=== PATIENT | female | born 1995 | race Caucasian/White ===

== ENCOUNTER → 2023-06-05 10:08 | Outpatient (REF) | payer OTHER, SELFPAY | LOC: PNTC 10:08 | PROVIDERS: ATTENDING PHYSICIAN Obstetrics & Gynecology | DX: Z36.0 Encounter for antenatal screening for chromosomal anomalies (principal); Z36.82 Encounter for antenatal screening for nuchal translucency | CPT/HCPCS: 76801; 76802; 76813; 76814 ==

== ENCOUNTER → 2023-07-05 14:48 | Outpatient (REF) | payer OTHER, SELFPAY | LOC: PNTC 14:48 | PROVIDERS: ATTENDING PHYSICIAN Obstetrics & Gynecology | DX: O30.042 Twin pregnancy, dichorionic/diamniotic, second trimester (principal); E83.119 Hemochromatosis, unspecified | CPT/HCPCS: 76805; 76810 ==

== ENCOUNTER → 2023-08-07 09:38 | Outpatient (REF) | payer OTHER, SELFPAY | LOC: PNTC 09:38 | PROVIDERS: ATTENDING PHYSICIAN Obstetrics & Gynecology | DX: O30.042 Twin pregnancy, dichorionic/diamniotic, second trimester (principal); E83.119 Hemochromatosis, unspecified | CPT/HCPCS: 76811; 76812 ==

== ENCOUNTER → 2023-08-27 07:05 | Outpatient (REF) | payer OTHER, SELFPAY | LOC: PNTC 07:05 | PROVIDERS: ATTENDING PHYSICIAN Obstetrics & Gynecology | DX: O30.049 Twin pregnancy, dichorionic/diamniotic, unspecified trimester (principal); E83.119 Hemochromatosis, unspecified | CPT/HCPCS: 76816 ==

== ENCOUNTER → 2023-09-24 16:26 | Outpatient (REF) | payer OTHER, SELFPAY | LOC: PNTC 16:26 | PROVIDERS: ATTENDING PHYSICIAN Obstetrics & Gynecology | DX: O30.049 Twin pregnancy, dichorionic/diamniotic, unspecified trimester (principal) | CPT/HCPCS: 76816 ==

== ENCOUNTER → 2023-10-25 15:31 | Outpatient (REF) | payer OTHER, SELFPAY | LOC: PNTC 15:31 | PROVIDERS: ATTENDING PHYSICIAN Obstetrics & Gynecology | DX: O30.049 Twin pregnancy, dichorionic/diamniotic, unspecified trimester (principal) | CPT/HCPCS: 59025 ==

== ENCOUNTER → 2023-11-01 15:53 | Outpatient (REF) | payer OTHER, SELFPAY | LOC: PNTC 15:53 | PROVIDERS: ATTENDING PHYSICIAN Obstetrics & Gynecology | DX: O30.049 Twin pregnancy, dichorionic/diamniotic, unspecified trimester (principal); O35.2XX0 Maternal care for (suspected) hereditary disease in fetus, not applicable or unspecified | CPT/HCPCS: 59025 ==

== ENCOUNTER → 2023-11-08 16:06 | Outpatient (REF) | payer OTHER, SELFPAY | LOC: PNTC 16:06 | PROVIDERS: ATTENDING PHYSICIAN Obstetrics & Gynecology | DX: O30.049 Twin pregnancy, dichorionic/diamniotic, unspecified trimester (principal); E83.110 Hereditary hemochromatosis | CPT/HCPCS: 59025 ==

== ENCOUNTER → 2023-11-15 15:26 | Outpatient (REF) | payer OTHER, SELFPAY | LOC: PNTC 15:26 | PROVIDERS: ATTENDING PHYSICIAN Obstetrics & Gynecology | DX: O30.049 Twin pregnancy, dichorionic/diamniotic, unspecified trimester (principal); E83.119 Hemochromatosis, unspecified | CPT/HCPCS: 36415; 59025 ==

== ENCOUNTER 2023-11-18 06:01 | Inpatient (IN) | payer OTHER, SELFPAY ==
[2023-11-18 06:20] VITALS: BP 138/85; BMI 27.0
== END 2023-11-18 07:27 | disposition home or self-care (01) | DRG 833 ==
LOC: LDRP 06:01
PROVIDERS: ADMITTING PHYSICIAN Obstetrics & Gynecology; FAMILY PHYSICIAN Family Medicine
DX: O47.03 False labor before 37 completed weeks of gestation, third trimester (principal); O30.043 Twin pregnancy, dichorionic/diamniotic, third trimester; Z3A.36 36 weeks gestation of pregnancy
CPT/HCPCS: 86850; 86900; 86901; G0378

== ENCOUNTER → 2023-11-22 15:26 | Outpatient (REF) | payer OTHER, SELFPAY | LOC: PNTC 15:26 | PROVIDERS: ATTENDING PHYSICIAN Obstetrics & Gynecology | DX: O30.049 Twin pregnancy, dichorionic/diamniotic, unspecified trimester (principal); E83.119 Hemochromatosis, unspecified | CPT/HCPCS: 59025 ==

== ENCOUNTER → 2023-11-27 14:57 | Outpatient (REF) | payer OTHER, SELFPAY | LOC: PNTC 14:57 | PROVIDERS: ATTENDING PHYSICIAN Obstetrics & Gynecology | DX: O30.049 Twin pregnancy, dichorionic/diamniotic, unspecified trimester (principal); E83.110 Hereditary hemochromatosis | CPT/HCPCS: 59025; 76815 ==

== ENCOUNTER 2023-12-03 05:52 | Inpatient (IN) | payer OTHER, SELFPAY ==
[2023-12-03 06:25] VITALS: BP 122/77; BMI 27.3
[2023-12-03 06:30] LABS: Hematocrit 32.9 % (37.0-47.0); Hemoglobin 11.5 g/dL (12.0-16.0); Mean Corpuscular Hgb 29.6 pg (27.0-31.0); Mean Corpuscular Volume 84.6 fL (81.0-99.0); Mean Platelet Volume 12.3 fL (7.4-10.4); Platelet Count 182 10^3/uL (130-400); Red Blood Cell Count 3.89 10^6/uL (4.20-5.40); Red Cell Dist. Width 13.7 % (11.5-14.5); White Blood Cell Count 11.7 10^3/uL (4.8-10.8)
[2023-12-03] MEDS: BICITRA 30 ML PO (07:39)
[2023-12-03] MEDS: TYLENOL 1000 MG PO (07:39)
[2023-12-03] MEDS: GENTAMICIN 60 MG IV (07:40)
[2023-12-03] MEDS: CLEOCIN 50 IV (09:52)
[2023-12-03] MEDS: REGLAN 10 MG IV (11:49)
[2023-12-03] MEDS: TORADOL 15 MG IV ×2 (15:24→20:54)
[2023-12-04] MEDS: TORADOL 15 MG IV ×2 (03:00→08:55)
[2023-12-04 04:54] LABS: Hematocrit 29.6 % (37.0-47.0); Hemoglobin 10.2 g/dL (12.0-16.0); Mean Corp Hgb Conc. 34.5 g/dL (33.0-37.0); Mean Corpuscular Hgb 29.4 pg (27.0-31.0); Mean Corpuscular Volume 85.3 fL (81.0-99.0); Mean Platelet Volume 12.1 fL (7.4-10.4); Platelet Count 193 10^3/uL (130-400); Red Blood Cell Count 3.47 10^6/uL (4.20-5.40); Red Cell Dist. Width 13.7 % (11.5-14.5); White Blood Cell Count 17.5 10^3/uL (4.8-10.8)
--- NOTE | 2023-12-04 07:40 | W.PN.ANS.POP ---
Anesthesia Post Operative
- Anesthesia Post Op Note
Vital Signs Stable-See Nursing Note: Yes
Airway Patent: Yes
Adequate Pain Control: Yes
Change in Mental Status: No
Current Postoperative Nausea & Vomiting: No
Anesthesia Complications: No
General Anesthetic Recall: No
Unplanned Admission: No
Post Op Hydration Adequate: Yes
[2023-12-04] MEDS: MYLICON 80 MG PO (09:49)
[2023-12-04] MEDS: PRENATAL PLUS 1 TABLET PO (09:49)
[2023-12-04] MEDS: FEOSOL 325 MG PO (09:49)
[2023-12-04 14:47] LABS: Syphilis/T. pallidum Ab Reflex Negative (Negative)
[2023-12-04] MEDS: MOTRIN 600 MG PO ×2 (15:16→23:53)
[2023-12-04] MEDS: TYLENOL 650 MG PO ×2 (15:16→23:53)
[2023-12-05] MEDS: MOTRIN 600 MG PO ×2 (06:17→19:41)
[2023-12-05] MEDS: TYLENOL 650 MG PO ×2 (06:17→19:40)
[2023-12-05] MEDS: MYLICON 80 MG PO (07:30)
[2023-12-05] MEDS: FEOSOL 325 MG PO (07:30)
[2023-12-05] MEDS: SENOKOT-S 1 TABLET PO (07:30)
[2023-12-05] MEDS: PRENATAL PLUS 1 TABLET PO (07:30)
[2023-12-06] MEDS: FEOSOL 325 MG PO (08:24)
[2023-12-06] MEDS: PRENATAL PLUS 1 TABLET PO (08:24)
--- NOTE | 2023-12-06 10:42 | W.DS.TRANS ---
DC Summary - [employer]
-
Discharge Instructions:
Discharge Diagnosis/Procedures s/p primary low-transverse section;
anemia, asymptomatic
Instructions:
Stand-Alone Forms: LDRP Delivery
Changes to Home Medications: No
Discharge Medications:
DC Medications w/original date entered in [employer]
Vitamin 1 tab-cap PO DAILY Supplement 11/18/23
acetaminophen 325 mg tablet 650 mg (2 x 325 mg) PO Q4HPRN PRN mild pain #0 tabs 12/06/23
ferrous sulfate 325 mg (65 mg iron) tablet (FeroSul) 325 mg PO DAILY #0 tabs 12/06/23
ibuprofen 600 mg tablet 600 mg PO Q6HPRN PRN cramps #60 tabs 12/06/23
oxycodone 5 mg tablet 5 mg PO Q4H PRN severe pain #5 tabs 12/06/23
sennosides 8.6 mg-docusate sodium 50 mg tablet 1 tab PO DAILYPRN PRN constipation #0 tabs 12/06/23
Home Medication Changes
Pending Results: No
Total time spent discharging patient (in min): 20
== END 2023-12-06 12:00 | disposition home or self-care (01) | DRG 788 ==
LOC: LDRP 05:52
PROVIDERS: ADMITTING PHYSICIAN Obstetrics & Gynecology; ATTENDING PHYSICIAN Obstetrics & Gynecology
PROC: 10D00Z1 Extraction of Products of Conception, Low, Open Approach (ICD-10-PCS; 2023-12-03)
DX: O30.043 Twin pregnancy, dichorionic/diamniotic, third trimester (principal); Z37.2 Twins, both liveborn; Z3A.38 38 weeks gestation of pregnancy; Z88.0 Allergy status to penicillin; O90.81 Anemia of the puerperium; D64.9 Anemia, unspecified
CPT/HCPCS: 88307; 85027; 86780; 86850; 86900; 86901

== ENCOUNTER 2024-07-07 13:28 | Outpatient (RCR) | payer BC, SELFPAY | END 2024-07-07 23:59 | disposition home or self-care (01) | LOC: RPT 13:28 | PROVIDERS: ATTENDING PHYSICIAN Obstetrics & Gynecology; FAMILY PHYSICIAN Family Medicine | DX: M62.89 Other specified disorders of muscle (principal); Z73.6 Limitation of activities due to disability; M62.81 Muscle weakness (generalized) | CPT/HCPCS: 97162; 97530 ==